=== PATIENT | male | born 1950 | race Two or more races ===

== ENCOUNTER 2021-05-15 13:49 | Inpatient (IN) | payer OTHER ==
[~2021-05-15] VITALS: Ht 165.1 cm; Wt 70.8 kg
--- NOTE | 2021-05-15 14:05 | NUR ---
THE PATIENT IS BIB FRIEND FOR C/O DIZZYNESS X 3 DAYS, ROOM SPINING. RESPIRATION REGULAR AND UNLABORED. ALERT AND ORIENTED X4. WILL CONTINUE TO MONITOR THE PATIENT.
[2021-05-15] MEDS ORDERED: ONDANSETRON HCL/PF 4 MG/2 ML VIAL ONE (14:58)
[2021-05-15] MEDS ORDERED: KETOROLAC TROMETHAMINE 15 MG/ML VIAL ONE (14:58)
[2021-05-15] MEDS ORDERED: KETOROLAC TROMETHAMINE INJ 30 MG/ML VIAL IV ONE (15:00)
[2021-05-15] MEDS ORDERED: IV NS 0.9% 1,000 ML BAG IV ONE (15:00)
[2021-05-15] MEDS ORDERED: ONDANSETRON HCL/PF 4 MG/2 ML VIAL IVP ONE (15:00)
[2021-05-15 15:15] LABS: BASOPHILS # (AUTO) 0.1 K/uL (0.0-0.2); EOSINOPHILS % (AUTO) 7.4 % (0.0-6.0); HEMATOCRIT 45 % (39-51); HEMOGLOBIN 14.8 g/dL (13.5-17.5); LYMPHOCYTES # (AUTO) 2.1 K/uL (0.8-4.8); LYMPHOCYTES % (AUTO) 30.4 % (20.0-44.0); MEAN CORPUSCULAR HGB CONC 33 g/dl (31.0-36.0); MEAN CORPUSCULAR VOLUME 93 fL (80-96); MONOCYTES # (AUTO) 0.6 K/uL (0.1-1.30); MONOCYTES % (AUTO) 8.3 % (2.0-12.0); NEUTROPHILS # (AUTO) 3.7 K/uL (1.8-8.9); NEUTROPHILS % (AUTO) 52.9 % (43.0-81.0); PLATELET COUNT (AUTO) 205 K/uL (150-450); RED BLOOD CELL COUNT(AUTO) 4.81 MIL/uL (4.5-6.0); WHITE BLOOD COUNT (AUTO) 6.9 K/uL (4.3-11.0)
--- NOTE | 2021-05-15 15:30 | NUR ---
pt sent to ct
[2021-05-15 15:41] LABS: CALCIUM, SERUM 8.5 mg/dL (8.5-10.1); CARBON DIOXIDE 29 mmol/L (21-32); CHLORIDE 106 mmol/L (98-107); CREATININE 1.2 mg/dL (0.6-1.3); GLUCOSE 98 mg/dL (74-106); POTASSIUM 3.8 mmol/L (3.5-5.1); SODIUM SERUM 141 mmol/L (136-145); UREA NITROGEN, BLOOD 20 mg/dL (7-18)
[2021-05-15 15:45] LABS: ALANINE AMINOTRANSFERASE 36 U/L (12-78); ALBUMIN 3.9 g/dL (3.4-5.0); ALKALINE PHOSPHATASE 69 U/L (46-116); ASPARTATE AMINOTRANSFERASE 21 U/L (15-37); BILIRUBIN,DIRECT 0.1 mg/dL (0.0-0.2); BILIRUBIN,TOTAL 0.7 mg/dL (0.2-1.0); LIPASE 312 U/L (73-393); TOTAL PROTEIN, SERUM 7.3 g/dL (6.4-8.2)
--- NOTE | 2021-05-15 15:51 | NUR ---
pt back from ct montiors applied
[2021-05-15 16:03] LABS: BILIRUBIN,URINE NEGATIVE (NEGATIVE); COLOR,URINE YELLOW (YELLOW); LEUKOCYTE ESTERASE ,URINE NEGATIVE (NEGATIVE); NITRITE, URINE NEGATIVE (NEGATIVE); PH,URINE 6.5 (5.0-8.0); PROTEIN,URINE NEGATIVE (NEGATIVE); UGLUCOSE NEGATIVE (NEGATIVE); UROBILINOGEN,URINE 0.2 EU/dL (0.2)
--- NOTE | 2021-05-15 17:29 | NUR ---
[place] [phone]
--- NOTE | 2021-05-15 17:37 | NUR ---
pt resting family at bedside pt speaks taiwan , up amb to br voided back to bed preparing for admit
[2021-05-15] MEDS ORDERED: ACETAMINOPHEN 325 MG TABLET PO PRN (18:00)
[2021-05-15] MEDS ORDERED: MAGNESIUM HYDROXIDE 30 ML UDC PO PRN (18:00)
[2021-05-15] MEDS ORDERED: ONDANSETRON HCL/PF 4 MG/2 ML VIAL IVP PRN (18:00)
[2021-05-15] MEDS ORDERED: ENOXAPARIN SODIUM 40 MG/0.4 ML DISP.SYRIN SQ ONE (18:00)
[2021-05-15] MEDS ORDERED: ZOLPIDEM TARTRATE 5 MG TABLET PO PRN (18:00)
--- NOTE | 2021-05-15 18:05 | NUR ---
pt swabbed for covid sent to lab
[2021-05-15] MEDS ORDERED: MECLIZINE HCL 12.5 MG TABLET PO ONE (19:30)
--- NOTE | 2021-05-15 20:13 | NUR ---
report given to Nafisa CARRILLO, continue plan of care.
[2021-05-15 20:20] VITALS: BP 157/96
[2021-05-15 20:56] VITALS: BP 157/96
--- NOTE | 2021-05-15 21:00 | NUR ---
RN NOTES ADMITTED PATIENT FROM ED DUE TO DIZZINESS X3 DAYS, HEADACHE AND GENERALIZED WEAKNESS, ALERT/ORIENTED X4, STABLE ON ROOM AIR, LUNG SOUNDS ARE CLEAR, NO COMPLAIN OF PAIN, DX NEW ONSET AFIB, DIZZINESS. SPEAKS ONLY SURINAMESE, SPOKE WITH DAUGHTER ON THE PHONE FOR ADMISSION QUESTIONS AND EDUCATED ON PLAN OF CARE. NEW ONSET AFIB, ON XARELTO, DVT PPX, SKIN INTACT, AMBULATES, PERFORMS ADLS, VOIDING SPONTANEOUSLY, KEPT SAFE, WILL CONTINUE TO MONITOR.
[2021-05-15 21:18] VITALS: BP 126/76
[2021-05-15 21:19] VITALS: BP 152/83
[2021-05-15 21:21] VITALS: BP 137/93
[2021-05-15] MEDS: RIVAROXABAN 10 MG TABLET PO SCH (21:46)
[2021-05-15] MEDS: IV NS 0.9% 1,000 ML IV PRN (22:04)
[2021-05-15 23:24] VITALS: BP 126/74
[2021-05-16] VITALS (7 sets, daily range): BP systolic 116–141; BP diastolic 57–86
--- NOTE | 2021-05-16 06:42 | NUR ---
RN NOTES ALERT/ORIENTED X4, STABLE ON ROOM AIR, DENIES ANY CHEST PAIN AT THIS TIME, SPEAKS ONLY TAJIK, NO CHINESE, AMBULATES, NS AT 75 ML/HR, 2GM SODIUM DIET, FALL PRECAUTION, NEURO CONSULT WITH DR. KRISHNAMURTHY, PT EVAL
--- NOTE | 2021-05-16 07:44 | NUR ---
ACCOUNTS PAYABLE ASSISTANT OPENING NOTE RECEIVED PATIENT LYING IN BED, SLEEPING. EASY TO AROUSE, A/O X4. SAUDI ARABIAN SPEAKING. STABLE ON ROOM AIR - NO SOB OR DISCOMFORT NOTED. IV ACCESS TO RIGHT AC # 18 - RUNNING NS @ 75ML/HR. PATIENT IS AMBULATORY. SAFETY MEASURES IN PLACE. CALL LIGHT WITHIN REACH. WILL CONTINUE TO MONITOR.
[2021-05-16 08:46] LABS: CALCIUM, SERUM 8.6 mg/dL (8.5-10.1); CREATININE 1.1 mg/dL (0.6-1.3); MAGNESIUM 2.3 mg/dL (1.8-2.4); PHOSPHORUS 3.6 mg/dL (2.5-4.9); POTASSIUM 4.4 mmol/L (3.5-5.1)
[2021-05-16 08:54] LABS: BASOPHILS % (AUTO) 0.9 % (0.0-2.0); EOSINOPHILS % (AUTO) 9.6 % (0.0-6.0); HEMATOCRIT 47 % (39-51); HEMOGLOBIN 15.2 g/dL (13.5-17.5); LYMPHOCYTES # (AUTO) 1.6 K/uL (0.8-4.8); LYMPHOCYTES % (AUTO) 30.2 % (20.0-44.0); MEAN CORPUSCULAR HGB CONC 33 g/dl (31.0-36.0); MEAN CORPUSCULAR VOLUME 94 fL (80-96); MONOCYTES # (AUTO) 0.4 K/uL (0.1-1.30); MONOCYTES % (AUTO) 8.3 % (2.0-12.0); NEUTROPHILS # (AUTO) 2.6 K/uL (1.8-8.9); PLATELET COUNT (AUTO) 200 K/uL (150-450); RED BLOOD CELL COUNT(AUTO) 4.97 MIL/uL (4.5-6.0); WHITE BLOOD COUNT (AUTO) 5.1 K/uL (4.3-11.0)
[2021-05-16] MEDS: ATORVASTATIN 10 MG TABLET PO SCH (10:02)
[2021-05-16] MEDS: IV NS 0.9% 1,000 ML IV PRN (11:24)
[2021-05-16] MEDS: MECLIZINE HCL 25 MG TABLET PO PRN (12:27)
[2021-05-16] MEDS: RIVAROXABAN 10 MG TABLET PO SCH (16:10)
--- NOTE | 2021-05-16 18:39 | NUR ---
ANALYSIS INTERN OPENING NOTE PATIENT CURRENTLY LYING IN BED, AWAKE. A/O X4. COLOMBIAN SPEAKING. STABLE ON ROOM AIR - NO SOB OR DISCOMFORT NOTED. IV ACCESS TO RIGHT AC # 18 - RUNNING NS @ 75ML/HR. PATIENT IS AMBULATORY. SAFETY MEASURES IN PLACE. CALL LIGHT WITHIN REACH. WILL ENDORSE TO SUPERVISOR OPENING AND PICKING NURSE FOR JANETT.
--- NOTE | 2021-05-16 19:30 | NUR ---
SURVEY AND MAPPING TECHNICIAN OPENING NOTE RECEIVED PT IN BED WITH EYES CLOSED, AROUSABLE TO STIMULATION. A/O X4, NIGERIEN-SPEAKING. PT IS STABLE ON ROOM AIR. NO SOB OR S/S OF RESPIRATORY DISTRESS NOTED. PT IS ON EXTERNAL AIRBORNE SENSOR SPECIALIST READING AFIB 81 BPM. PT IS AMBULATORY WITH BRP. IV ACCESS NOTED IN RIGHT AC #18, INFUSING NS @ 75 ML/HR. SAFETY MEASURES MAINTAINED. BED IN LOWEST LOCKED POSITION, HOB ELEVATED, SIDE RAILS UP X2. CALL LIGHT AND TABLE WITHIN REACH. WILL CONTINUE WITH PLAN OF CARE.
[2021-05-17 00:07] VITALS: BP 132/86
[2021-05-17] MEDS: IV NS 0.9% 1,000 ML IV PRN ×2 (02:30→16:48)
[2021-05-17 03:59] VITALS: BP 130/96
[2021-05-17 06:00] LABS: BASOPHILS # (AUTO) 0.1 K/uL (0.0-0.2); BASOPHILS % (AUTO) 1.1 % (0.0-2.0); HEMATOCRIT 46 % (39-51); HEMOGLOBIN 15.3 g/dL (13.5-17.5); LYMPHOCYTES # (AUTO) 1.6 K/uL (0.8-4.8); MEAN CORPUSCULAR HGB CONC 33 g/dl (31.0-36.0); MEAN CORPUSCULAR VOLUME 93 fL (80-96); MONOCYTES # (AUTO) 0.5 K/uL (0.1-1.30); MONOCYTES % (AUTO) 8.4 % (2.0-12.0); NEUTROPHILS # (AUTO) 3.4 K/uL (1.8-8.9); NEUTROPHILS % (AUTO) 55.5 % (43.0-81.0); PLATELET COUNT (AUTO) 193 K/uL (150-450); RED BLOOD CELL COUNT(AUTO) 4.95 MIL/uL (4.5-6.0)
[2021-05-17 06:15] LABS: CALCIUM, SERUM 9.2 mg/dL (8.5-10.1); CREATININE 1.1 mg/dL (0.6-1.3); MAGNESIUM 2.2 mg/dL (1.8-2.4); PHOSPHORUS 4.3 mg/dL (2.5-4.9); POTASSIUM 4.5 mmol/L (3.5-5.1)
--- NOTE | 2021-05-17 06:16 | NUR ---
PRODUCTION WELDER CLOSING NOTE PT IS IN BED WITH EYES CLOSED, AROUSABLE TO STIMULATION. A/O X4, MICRONESIAN-SPEAKING. PT IS STABLE ON ROOM AIR. NO SOB OR S/S OF RESPIRATORY DISTRESS NOTED. PT IS ON EXTERNAL SEWING MACHINE OPERATOR PAPER BAGS READING AFIB 76 BPM. IV ACCESS IS INTACT, PATENT, AND FLUSHING WELL. ALL NEEDS HAVE BEEN MET. SAFETY PRECAUTIONS MAINTAINED AT ALL TIMES. BED IN LOWEST LOCKED POSITION, HOB ELEVATED, SIDE RAILS UP X2. CALL LIGHT AND TABLE WITHIN REACH. WILL ENDORSE TO ONCOMING NURSE FOR JANETT.
--- NOTE | 2021-05-17 07:34 | NUR ---
EMBOSSER OPERATOR OPENING NOTES RECEIVED PT AWAKE IN BED IN NO ACUTE SIGNS OF DISTRESS. A/O X4, CITIZEN OF [place]-SPEAKING, DENIES PAIN OR ANY DISCOMFORTS AT THIS TIME. ON ROOM AIR, TOLERATING WELL WITH NO SOB NOTED. ON EXTERNAL PRIMARY CARE NURSE PRACTITIONER WITH CURRENT READING OF A-FIB, HR ON THE 70'S, NO C/O CARDIAC DISTRESS VOICED AT THIS TIME. IV ACCESS ON RIGHT AC #18, INFUSING NS @ 75 ML/HR, NO S/S OF INFILTRATION NOTED. SAFETY MEASURES IN PLACE: BED IN LOWEST LOCKED POSITION, SIDE RAILS UP X2 AND CALL LIGHT AND BEDSIDE TABLE WITHIN EASY REACH OF PT. WILL CONTINUE TO MONITOR PT ACCORDINGLY.
[2021-05-17 08:00] VITALS: BP 148/97
[2021-05-17] MEDS: ATORVASTATIN 10 MG TABLET PO SCH (08:09)
[2021-05-17] MEDS: MECLIZINE HCL 25 MG TABLET PO PRN ×2 (10:38→20:53)
--- NOTE | 2021-05-17 10:40 | NUR ---
RN NOTES PT C/O OF SLIGHT DIZZINESS AFTER GOING TO THE BATHROOM. ASSISTED TO BED. ARTEM LEVY ON UNIT AND MADE AWARE. PRN MECLIZINE 25MG PO GIVEN AT 1038. WILL CONTINUE TO MONITOR.
--- NOTE | 2021-05-17 11:09 | NUR ---
RN NOTES PT FOR MRI OF BRAIN W/O CONTRAST PER MD. PT UN-ABLE TO SPEAK AND UNDERSTAND [place]. USE LANGUAGE LINE PHONE AND SPOKE TO SEAL MIXER, BOT ID # [id number] TO TRANSLATE TO [facility] REGARDING MRI PATIENT QUESTIONNAIRE, PT UNDERSTANDS PROCEDURE AND SIGNED MRI CHECKLIST FORM.
--- NOTE | 2021-05-17 12:25 | NUR ---
RN NOTES PT FOR MRI OF BRAIN. CALLED MRI DEPT X2 NO ANSWER AT THIS TIME.
[2021-05-17 16:00] VITALS: BP 147/93
--- NOTE | 2021-05-17 16:00 | NUR ---
RN NOTES CALLED MRI DEPT AGAIN, NOBODY IS ANSWERING. WILL ENDORSE TO NEXT SHIFT.
[2021-05-17] MEDS: RIVAROXABAN 10 MG TABLET PO SCH (16:46)
--- NOTE | 2021-05-17 18:48 | NUR ---
MS RN CLOSING NOTES PT SITTING UP IN BED IN NO ACUTE DISTRESS AT THIS TIME. A/O X4, MAURITIAN-SPEAKING. NO C/O DIZZINESS AT THIS TIME. ON ROOM AIR, TOLERATING WELL WITH NO SOB. IV ACCESS ON R-AC #18, IVF INFUSING NS @ 100 ML/HR, NO S/S OF INFILTRATION NOTED. SAFETY MEASURES IN PLACE: BED IN LOWEST LOCKED POSITION, SIDE RAILS UP X2 AND CALL LIGHT AND BEDSIDE TABLE WITHIN EASY REACH OF PT. ALL NEEDS ATTENDED WELL. WILL ENDORSE JANETT TO TREATMENT MANAGER NURSE.
--- NOTE | 2021-05-17 19:48 | NUR ---
MS RN OPENING PATIENT ENDORSED TO ME IN BED. A/OX4. NO S/S OF APPARENT DISTRESS. NO C/O PAIN AT THE MOMENT. IV NS RUNNING @100ML/HR. SAFETY IN PLACE: BED IN LOWEST, LOCKED POSITION. CALL LIGHT WITHIN REACH. WILL CONTINUE TO MONITOR.
[2021-05-17 20:00] VITALS: BP 126/86
--- NOTE | 2021-05-17 20:57 | NUR ---
MS RN NOTES MECLIZINE GIVEN AT THIS TIME. PATIENT C/O VERTIGO PER CASTING PLUG ASSEMBLER.
--- NOTE | 2021-05-18 07:30 | NUR ---
MS RN NOTES CALLED MRI TO FOLLOW UP. NO ANSWER. ENDORSED TO [place] TRAN.
--- NOTE | 2021-05-18 07:31 | NUR ---
MS RN CLOSING NOTE PATIENT IN BED. A/OX4. NO S/S OF APPARENT DISTRESS. IV NS RUNNING @100ML/HR. SAFETY KEPT IN PLACE THE WHOLE SHIFT: BED IN LOWEST, LOCKED POSITION. CALL LIGHT WITHIN REACH. ALL NEEDS ATTENDED. ALL SCHED MEDS ADMINISTERED. NO SIGNIFICANT CHANGE SINCE LAST SHIFT. WILL ENDORSE CARE TO MORNING RN.
--- NOTE | 2021-05-18 07:35 | NUR ---
MS RN OPENING NOTE RECEIVED PATIENT LYING IN BED, RESTING. EASY TO AROUSE. A/O X4. STABLE ON ROOM AIR - NO SOB NOTED. IV ACCESS TO RIGHT AC #18 - RUNNING NS @100ML/HR. PATIENT IS AMBULATORY. SAFETY MEASURES IN PLACE. CALL LIGHT WITHIN REACH. WILL CONTINUE TO MONITOR.
[2021-05-18] MEDS: ATORVASTATIN 10 MG TABLET PO SCH (08:43)
[2021-05-18] MEDS ORDERED: MECL-159 PO (09:22)
[2021-05-18] MEDS ORDERED: RIVA10TA PO (09:22)
[2021-05-18] MEDS: RIVAROXABAN 10 MG TABLET PO SCH (16:24)
[2021-05-18] MEDS: MECLIZINE HCL 25 MG TABLET PO PRN (17:35)
--- NOTE | 2021-05-18 17:36 | NUR ---
MS CAREER RESOURCE SPECIALIST NOTE PATIENT DISCHARGED VIA PRIVATE CAR WITH DAUGHTER. PATIENT STABLE, NO SOB OR DISCOMFORT NOTED. NO COMPLAINTS OF PAIN. PATIENT KEPT CLEAN AND DRY THROUGHOUT SHIFT. ALL EXITCARE AND EDUCATION GONE OVER WITH PATIENT AND DAUGHTER AT BEDSIDE. PATIENT AND DAUGHTER VERBALIZED UNDERSTANDING. PRESCRIPTION GIVEN TO PATIENT. IV REMOVED AND WRISTBAND REMOVED. PATIENT ACCOMPANIED TO LOBBY BY MYSELF AND DAUGHTER. MD AND CHARGE NURSE AWARE OF DISCHARGE.
== END 2021-05-18 17:30 | disposition home or self-care (01) | DRG 111 ==
LOC: ER 14:11 → TELE 20:30 → MED 05-17 11:04
PROVIDERS: ADMIT Nurse Practitioner Acute Care; ATTEND Nurse Practitioner Acute Care
DX: H81.10 Benign paroxysmal vertigo, unspecified ear (principal); N17.9 Acute kidney failure, unspecified; I48.91 Unspecified atrial fibrillation; E11.9 Type 2 diabetes mellitus without complications; Z20.822 Contact with and (suspected) exposure to COVID-19; I10 Essential (primary) hypertension; M19.90 Unspecified osteoarthritis, unspecified site; E78.5 Hyperlipidemia, unspecified
CPT/HCPCS: 36415; 70450-TC; 70544-TC; 71045-TC; 80048-TC; 80061-TC; 80076-TC; 83690-TC; 83735-TC; 84100-TC; 84484-TC; 85025-TC; 87081-TC; 93307-TC; 97116-TC; 97530-TC; C9803; G0378; J1885; J2405; J7030; J8597